=== PATIENT | male | born 1935 | race Caucasian/White ===

== ENCOUNTER 2022-11-10 07:45 | Emergency (ER) | payer MEDICARE ==
[2022-11-10] MEDS ORDERED: BACITRACIN ZINC OINT 1 PACKET TOP STA (07:55)
--- NOTE | 2022-11-10 08:01 | ED Physician Documentation ---
History of Present Illness - Stated complaint Stated Complaint: GLF - History obtained from History obtained from: Patient - Additonal information Additional information: The patient comes to the emergency department for chief complaint of abrasions after taking a ground-level fall. He states he was coming out a door to the outside after eating breakfast when he stepped off a step onto uneven ground. He lost his balance and fell to the ground, he states hitting first with his knees, and then blocking his fall with his forearms. He did roll onto the ground and scraped his forehead, but states that He did not hit very hard. He does not take any anticoagulants. He did not lose consciousness. The patient denies any bony pain and was able to get himself up on his own is nobody else was around. He got a couple of Band-Aids on his forearms and then drove himself here to the ED, where he walked in the back door. No other complaints at this time. No rib or abdominal pain. No extremity pain. No spinal pain. PD PAST MEDICAL HISTORY - Past Medical History Cardiovascular: Hypertension Respiratory: None Endocrine/Autoimmune: None GI: Diverticulitis : None Psych: None Musculoskeletal: None Derm: None - Past Surgical History Past Surgical History: Yes General: Bowel surgery, Colonoscopy HEENT: Other - Present Medications Home Medications: Ambulatory Orders Medication Instructions Recorded Confirmed Apixaban [Eliquis] 2.5 mg PO BID 11/10/22 11/10/22 Budesonide/Glycopyr/Formoterol 1 inh INH DAILY 11/10/22 11/10/22 [Breztri Aerosphere Inhaler] Carvedilol [Coreg] 25 mg PO 11/10/22 Losartan [Cozaar] 50 mg PO DAILY 11/10/22 11/10/22 Zolpidem [Ambien] 5 mg PO HS 11/10/22 11/10/22 traZODone [Desyrel] 25 mg PO HS PRN 11/10/22 11/10/22 - Allergies Allergies/Adverse Reactions: Allergies Allergy/AdvReac Type Severity Reaction Status Date / Time amlodipine besylate * AdvReac Unknown Verified 05/04/15 10:28 [From Pamela] lisinopril AdvReac Unknown Verified 05/04/15 10:28 olmesartan medoxomil * AdvReac Unknown Verified 05/04/15 10:28 [From Pamela] - Social History Does the pt smoke?: No Smoking Status: Never smoker Does the pt drink ETOH?: Yes Does the pt have substance abuse?: No - Immunizations Immunizations are current?: No PD ED PE NORMAL - Vitals Vital signs reviewed: Yes - General General: Alert and oriented X 3, No acute distress, Well developed/nourished - HEENT HEENT: PERRL, EOMI, Moist mucous membranes, Other (2 cm diameter abrasion without edema or contusion on the patient's right lateral forehead. No bony deformity.) - Neck Neck: Supple, no meningeal sign, No bony TTP - Cardiac Cardiac: RRR, No murmur, Strong equal pulses - Respiratory Respiratory: No respiratory distress, Clear bilaterally - Abdomen Abdomen: Soft, Non tender, Non distended - Derm Derm: Normal color, Warm and dry, Other (Multiple abrasions over forearms and lower extremities, all superficial and without edema.) - Extremities Extremities: No deformity - Neuro Neuro: Alert and oriented X 3 - Psych Psych: Normal mood, Normal affect - Free text exam Free text exam: No rib tenderness or step-off. No crepitus. No tenderness or instability of the hips or pelvis. Results - Vitals Vitals: Oxygen O2 Source Room air - Rads (name of study) CT head Relevant Findings:: Final report received, See rad report (neg) PD Medical Decision Making - ED course Complexity details: considered differential, d/w patient ED course: The patient's wounds were dressed with bacitracin after cleaning. The patient initially stated that he was not on any anticoagulants and appeared to have minimal head trauma, and so I did not feel CT was indicated. However, on review of the patient's medications and fill history, it did appear the patient had filled a prescription for Eliquis less than 2 months ago and that the prescription would still be in effect at this time. This was discussed with the patient who stated he really did not think he was actually taking the Eliquis and that he would expect to be bleeding much more if he was on the Eliquis. The patient did have only minimal oozing from his wounds, but the wounds are very superficial. Given the question of Eliquis, even though the patient's head trauma was very minor, I did go ahead and obtain CT scan of the head after all. He had no bony pain or tenderness and has been able to get himself up off the ground and ambulate here, and I did not feel x-rays were indicated either. Patient was stable for discharge home. We have discussed home management of the symptoms, as well as the usual indications for return. Departure - Departure Disposition: 01 Home, Self Care Clinical Impression: Ground-level fall, Multiple abrasions Condition: Stable Instructions: ED Abrasion Comments: Your wounds have been cleaned and dressed with antibiotic ointment. Your CT scan looks good. It is not clear if you are taking your Eliquis or not, but it does appear that you did have a prescription for blood thinners filled a couple months ago. Please check with your doctor to be sure whether you should be on this medicine or not. Discharge Date/Time: 11/10/22 08:45
[2022-11-10 08:05] VITALS: BP 197/97
--- OUTSIDE RECORDS SUMMARY | 2022-11-10 08:27 | EXTERNAL MEDICAL SUMMARY RPT | Continuity of Care Document ---
Author Name Unknown Address [address] [place] [address] Phone Organization [facility] Address [address] [place] [id number] Phone Problems date description facility 2022-11-07 09:56 Shortness of breath [facility] 2022-11-07 10:49 Shortness of breath [facility] Results/Labs test date author facility value unit interpretation Result panel 1 (unknown) (no date) (unknown) (unknown) (no value) (units unknown) (unknown) (unknown) (no date) (unknown) (unknown) 11/07/22 (units unknown) (unknown) (unknown) (no date) (unknown) (unknown) [address] [place] [address] (un its unknown) (unknown) (unknown) (no date) (unknown) (unknown) 2V, (units unknown) (unknown) (unknown) (no date) (unknown) (unknown) 10/05/2021, 12:06. (u nits unknown) (unknown) (unknown) (no date) (unknown) (unknown) Accession Numb er: [id number] (units unknown) (unknown) (unknown) (no date) (unknown) (unknown) Age/Sex: 86 / M Date of Service: (units unknown) (unknown) (unknown) (no date) (unknown) (unknown) [place] [address] (units unknown) (unknown) (unknown) (no date) (unknown) (unknown) Approved by: Elizabeth Vázquez M.D. on 11/07/2022 at 14:17 (units unknown) (unknown) (unknown) (no date) (unknown) (unknown) Bones and ches t wall: No suspicious bony abnormalities. Soft tissues appear (units unknown) (unknown) (unknown) (no date) (unknown) (unknown) COMPARISON: CT , CT CHEST W CON, 10/10/2021, 9:08. [facility], CR, XR CHEST (units unknown) (unknown) (unknown) (no date) (unknown) (unknown) : 7 Acct:[id number] (units unknown) (unknown) (unknown) (no date) (unknown) (unknown) Dictated by: Elizabeth Vázquez M.D. on 11/07/2022 at 14:17 (units unknown) (unknown) (unknown) (no date) (unknown) (unknown) FINDINGS: (units unknown) (unknown) (unknown) (no date) (unknown) (unknown) IMPRESSION: Mi ld retrocardiac and right basilar opacity. Developing pneumonia (units unknown) (unknown) (unknown) (no date) (unknown) (unknown) INDICATIONS: SHORTNESS OF BREATH (units unknown) (unknown) (unknown) (no date) (unknown) (unknown) [facility] (uni ts unknown) (unknown) (unknown) (no date) (unknown) (unknown) Loc: RAD (units unknown) (unknown) (unknown) (no date) (unknown) (unknown) Lungs and pleu ra: Mild appearance of retrocardiac and right basilar opacity. (units unknown) (unknown) (unknown) (no date) (unknown) (unknown) [id number] (units unknown) (unknown) (unknown) (no date) (unknown) (unknown) Mediastinum: Mediastinal contours are normal. Heart size is normal. (units unknown) (unknown) (unknown) (no date) (unknown) (unknown) Ordering Provi ti: Ngozi Warren P.A-C (units unknown) (unknown) (unknown) (no date) (unknown) (unknown) PROCEDURE: XR CHEST 2V (units unknown) (unknown) (unknown) (no date) (unknown) (unknown) Patient: Timur Lazaro MR#: (units unknown) (unknown) (unknown) (no date) (unknown) (unknown) Procedure: XR chest 2V (units unknown) (unknown) (unknown) (no date) (unknown) (unknown) Signed (units unknown) (unknown) (unknown) (no date) (unknown) (unknown) Surgical holder es and devices: None. (units unknown) (unknown) (unknown) (no date) (unknown) (unknown) TECHNIQUE: 2 v iews of the chest were acquired. (units unknown) (unknown) (unknown) (no date) (unknown) (unknown) XRay Report (units unknown) (unknown) (unknown) (no date) (unknown) (unknown) considered. (units unknown) (unknown) (unknown) (no date) (unknown) (unknown) should be (units unknown) (unknown) (unknown) (no date) (unknown) (unknown) unremarkable. (units unknown) (unknown)
--- NOTE | 2022-11-10 08:33 | CT Report ---
PROCEDURE: HEAD WO INDICATIONS: head injury on eliquis TECHNIQUE: Noncontrast 4.5 mm thick angled axial sections acquired from the foramen magnum to the vertex. For r adiation dose reduction, the following was used: automated exposure control, adjustment of mA and/or kV according to patient size. COMPARISON: None. FINDINGS: Image quality: Excellent. CSF spaces: Basal cisterns are patent. No extra-axial fluid collections. Ventricles are normal in size and shape. Brain: No midline shift. No intracranial masses or hemorrhage. Lackey-white matter interface is norm al. Subcortical and periventricular hypodensities are consistent with microvascular ischemic disease and age-related cerebral volume loss. Skull and face: Calvarium and visualized facial bones are intact, without suspicious lesions. Sinuses: Visualized sinuses and mastoids are clear. IMPRESSION: 1. No acute intracranial abnormality. 2. Microvascular ischemic disease and age-related cerebral volume loss. Reviewed by: Josh Kothari on 11/10/2022 7:31 AM [place] Approved by: Josh Kothari on 11/10/2022 7:31 AM [place] Station ID: [id number]
== END 2022-11-10 08:45 | disposition home or self-care (01) ==
LOC: ED 07:45
DX: S00.81XA Abrasion of other part of head, initial encounter (principal); S50.812A Abrasion of left forearm, initial encounter; S50.811A Abrasion of right forearm, initial encounter; S80.812A Abrasion, left lower leg, initial encounter; S80.811A Abrasion, right lower leg, initial encounter; W10.9XXA Fall (on) (from) unspecified stairs and steps, initial encounter; I10 Essential (primary) hypertension; Z79.899 Other long term (current) drug therapy; Z79.51 Long term (current) use of inhaled steroids
CPT/HCPCS: 70450; 99281; 99283; A9270